=== PATIENT | female | born 1970 | race Asian ===

== ENCOUNTER 2017-02-23 08:00 | Outpatient (CLI) | payer BC, OTHER ==
[2017-02-23 19:07] LABS: BASOPHILS # (AUTO) 0.1 10^3/uL (0.0-0.1); EOSINOPHILS # (AUTO) 0.1 10^3/uL (0.0-0.7); EOSINOPHILS % (AUTO) 1.3 %; HCT - HEMATOCRIT 40.2 % (37.0-47.0); HGB - HEMOGLOBIN 13.6 g/dL (12.0-16.0); LYMPHOCYTES # (AUTO) 2.6 10^3/uL (1.5-3.5); MEAN CORPUSCULAR HEMOGLOBIN 31.2 pg (27.0-31.0); MEAN CORPUSCULAR HGB CONC 33.7 g/dL (32.0-36.0); MEAN CORPUSCULAR VOLUME 92.4 fL (81.0-99.0); MEAN PLATELET VOLUME 8.6 fL (7.9-10.8); MONOCYTES # (AUTO) 0.2 10^3/uL (0.0-1.0); MONOCYTES % (AUTO) 4.3 %; NEUTROPHILS # (AUTO) 2.6 10^3/uL (1.5-6.6); NEUTROPHILS % (AUTO) 46.4 %; NUCLEATED RED BLOOD CELLS AUTO 0.1 /100WBC; RED BLOOD COUNT 4.35 10^6/uL (4.20-5.40); RED CELL DISTRIBUTION WIDTH 13.4 % (12.0-15.0); UNCORRECTED WHITE BLOOD COUNT 5.6 x10^3/uL; WHITE BLOOD COUNT 5.6 x10^3/uL (4.8-10.8)
[2017-02-23 19:37] LABS: HEMOGLOBIN A1C 0.53 g/dL
[2017-02-23 19:42] LABS: THYROID STIMULATING HORMONE 1.64 uIU/mL (0.34-5.60)
[2017-02-23 20:08] LABS: FOLLICLE STIMULATING HORMONE 8.33 mIU/mL
== END 2017-02-23 08:01 | disposition home or self-care (01) ==
LOC: LAB.N 08:00
PROVIDERS: ATTEND Registered Nurse
DX: N92.1 Excessive and frequent menstruation with irregular cycle (principal)
CPT/HCPCS: 36415; 82670; 83001; 83036; 84436; 84439; 84443; 85025

== ENCOUNTER 2017-12-02 08:00 | Outpatient (CLI) | payer BC, OTHER ==
[2017-12-02 13:02] LABS: BASOPHILS # (AUTO) 0.1 10^3/uL (0.0-0.1); BASOPHILS % (AUTO) 1.2 %; EOSINOPHILS # (AUTO) 0.1 10^3/uL (0.0-0.7); EOSINOPHILS % (AUTO) 1.3 %; LYMPHOCYTES # (AUTO) 1.9 10^3/uL (1.5-3.5); LYMPHOCYTES % (AUTO) 34.5 %; MEAN CORPUSCULAR HEMOGLOBIN 30.8 pg (27.0-31.0); MEAN CORPUSCULAR HGB CONC 33.3 g/dL (32.0-36.0); MEAN CORPUSCULAR VOLUME 92.7 fL (81.0-99.0); MEAN PLATELET VOLUME 8.5 fL (7.9-10.8); MONOCYTES # (AUTO) 0.3 10^3/uL (0.0-1.0); MONOCYTES % (AUTO) 6.1 %; NEUTROPHILS # (AUTO) 3.1 10^3/uL (1.5-6.6); NEUTROPHILS % (AUTO) 56.9 %; PLT - PLATELET COUNT 238 10^3/uL (130-450); RED BLOOD COUNT 3.91 10^6/uL (4.20-5.40); RED CELL DISTRIBUTION WIDTH 14.3 % (12.0-15.0); WHITE BLOOD COUNT 5.5 x10^3/uL (4.8-10.8)
[2017-12-02 13:04] LABS: THYROID STIMULATING HORMONE 1.95 uIU/mL (0.34-5.60)
[2017-12-02 13:31] LABS: FOLLICLE STIMULATING HORMONE 3.93 mIU/mL
[2017-12-02 13:32] LABS: LUTEINIZING HORMONE 3.05 mIU/mL
== END 2017-12-02 08:01 | disposition home or self-care (01) ==
LOC: LAB.N 08:00
PROVIDERS: ATTEND Registered Nurse
DX: N92.1 Excessive and frequent menstruation with irregular cycle (principal)
CPT/HCPCS: 36415; 82670; 83001; 83002; 84443; 85025

== ENCOUNTER 2018-02-01 10:34 | Outpatient (CLI) | payer BC, OTHER ==
--- NOTE | 2018-02-01 13:35 | Ultrasound Report ---
Reason: EXCESSIVE AND FREQUENT MENSTRUATION WITH IRREGULAR Procedure Date: 02/01/2018 Accession Number: [id number] / [id number] Procedure: US - Pelvic w/Transvaginal CPT Code: FULL RESULT: EXAM: PELVIC ULTRASOUND EXAM DATE: 02/01/2018 11:34 AM. CLINICAL HISTORY: Excessive and frequent menstruation with irregular cycles. COMPARISON: None. TECHNIQUE: Realtime transabdominal pelvic scan performed to identify the uterus and adnexa and as an overview of other pelvic structures, followed by transvaginal scan to provide greater detail of the uterus and adnexa, with static image documentation. FINDINGS: Uterus: 11.0 x 5.6 x 6.1 cm, volume 196 cc. Anteverted position. Normal overall size and echotexture. Masses: There is a submucosal fibroid which measures 2.0 x 3.1 x 3.5 cm. Endometrium: 5 mm. Normal. Cervix: Unremarkable. Right Ovary: 2.2 x 1.5 x 1.6 cm, volume 2.7 cc. Normal echotexture and blood flow. Left Ovary: 2.3 x 1.1 x 1.5 cm, volume 1.9 cc. Normal echotexture and blood flow. Free Fluid: None. Other: None. IMPRESSION: Submucosal fibroid. RADIA
== END 2018-02-01 10:35 | disposition home or self-care (01) ==
LOC: DI 10:34
PROVIDERS: ATTEND Registered Nurse
DX: D25.0 Submucous leiomyoma of uterus (principal)
CPT/HCPCS: 76830; 76856

== ENCOUNTER 2018-12-20 09:02 | Outpatient (CLI) | payer BC, OTHER ==
[2018-12-20 12:08] LABS: BASOPHILS # (AUTO) 0.1 10^3/uL (0.0-0.1); BASOPHILS % (AUTO) 1.2 %; EOSINOPHILS # (AUTO) 0.1 10^3/uL (0.0-0.7); EOSINOPHILS % (AUTO) 1.2 %; HGB - HEMOGLOBIN 12.9 g/dL (12.0-16.0); LYMPHOCYTES % (AUTO) 40.3 %; MEAN CORPUSCULAR HEMOGLOBIN 31.1 pg (27.0-31.0); MEAN CORPUSCULAR HGB CONC 31.9 g/dL (32.0-36.0); MEAN CORPUSCULAR VOLUME 97.6 fL (81.0-99.0); MEAN PLATELET VOLUME 10.7 fL (7.9-10.8); MONOCYTES # (AUTO) 0.3 10^3/uL (0.0-1.0); MONOCYTES % (AUTO) 6.4 %; NEUTROPHILS # (AUTO) 2.5 10^3/uL (1.5-6.6); NEUTROPHILS % (AUTO) 50.7 %; PLT - PLATELET COUNT 262 10^3/uL (130-450); RED BLOOD COUNT 4.15 10^6/uL (4.20-5.40); RED CELL DISTRIBUTION WIDTH 12.3 % (12.0-15.0); WHITE BLOOD COUNT 4.8 x10^3/uL (4.8-10.8)
[2018-12-20 12:24] LABS: ALBUMIN 4.5 g/dL (3.2-5.5); ALBUMIN/GLOBULIN RATIO 1.3 (1.0-2.2); ALKALINE PHOSPHATASE 43 IU/L (42-121); ALT ALANINE AMINOTRANSFERASE 20 IU/L (10-60); AST ASPARTATE AMINOTRANSFERASE 22 IU/L (10-42); BILIRUBIN,TOTAL 0.9 mg/dL (0.2-1.0); BUN - BLOOD UREA NITROGEN 15 mg/dL (6-20); CALCIUM 9.4 mg/dL (8.5-10.3); CARBON DIOXIDE - CO2 23 mmol/L (21-32); CHLORIDE 105 mmol/L (101-111); CHOL/HDL RATIO 2.7 (<4.4); CHOLESTEROL 175 mg/dL; CREATININE 0.7 mg/dL (0.4-1.0); GFR - MDRD 89 (>89); GLUCOSE 92 mg/dL (70-100); HDL CHOLESTEROL 66 mg/dL; LDL CHOLESTEROL,CALCULATED 100 mg/dL; LDL/HDL RATIO 1.5 (<4.4); SODIUM 140 mmol/L (135-145); TOTAL PROTEIN 7.9 g/dL (6.7-8.2); VLDL CHOLESTEROL 9 mg/dL
== END 2018-12-20 09:03 | disposition home or self-care (01) ==
LOC: LAB.WCP 09:02
PROVIDERS: ATTEND Family Medicine
DX: K21.9 Gastro-esophageal reflux disease without esophagitis (principal); L81.9 Disorder of pigmentation, unspecified; L70.0 Acne vulgaris; N92.0 Excessive and frequent menstruation with regular cycle; R20.2 Paresthesia of skin
CPT/HCPCS: 36415; 80053; 80061; 83721; 84443; 85025

== ENCOUNTER 2019-01-27 13:14 | Outpatient (CLI) | payer BC, OTHER | END 2019-01-27 13:15 | disposition home or self-care (01) | LOC: DI 13:14 | PROVIDERS: ATTEND Family Medicine | DX: Z53.9 Procedure and treatment not carried out, unspecified reason (principal) ==

== ENCOUNTER 2019-01-30 08:15 | Outpatient (CLI) | payer BC, OTHER ==
--- NOTE | 2019-01-30 16:19 | XRAY Report ---
Reason: NECK AND BACK PAIN Procedure Date: 01/30/2019 Accession Number: [id number] / [id number] Procedure: WCP - Cervical Spine 2 View CPT Code: FULL RESULT: EXAM: CERVICAL SPINE RADIOGRAPHY EXAM DATE: 01/30/2019 08:32 AM. CLINICAL HISTORY: NECK AND BACK PAIN. COMPARISONS: None. TECHNIQUE: 3 views. FINDINGS: Alignment: Normal. No spondylolisthesis or scoliosis. Bones: The cervical vertebral bodies and posterior elements are well visualized from the skull base through C7-T1. No fractures or bone lesions. Disks: Mild disk space height narrowing at C5-C6. Disk heights elsewhere are maintained . Facets: No degenerative disease. Soft Tissues: Normal. No prevertebral soft tissue swelling. The visualized lung apices are clear. IMPRESSION: Mild focal degenerative changes at C5-C6. RADIA
--- NOTE | 2019-01-30 16:19 | XRAY Report ---
Reason: LEFT SHOULDER PAIN Procedure Date: 01/30/2019 Accession Number: [id number] / [id number] Procedure: WCP - Shoulder 3 View LT CPT Code: FULL RESULT: EXAM: LEFT SHOULDER RADIOGRAPHY EXAM DATE: 01/30/2019 08:32 AM. CLINICAL HISTORY: LEFT SHOULDER PAIN. COMPARISON: None. TECHNIQUE: 3 views. FINDINGS: Bones: Normal. No fracture or bone lesion. Joints: The glenohumeral and acromioclavicular joints are normal. Soft tissues: The visualized hemithorax is unremarkable. No soft tissue swelling. IMPRESSION: Normal shoulder radiography. RADIA
== END 2019-01-30 23:59 | disposition home or self-care (01) ==
LOC: DI.WCP 08:15 → EDSTATUS 13:19 → DI.WCP 23:59
PROVIDERS: ATTEND Family Medicine
DX: M50.322 Other cervical disc degeneration at C5-C6 level (principal); M25.512 Pain in left shoulder
CPT/HCPCS: 72040

== ENCOUNTER 2019-04-06 08:00 | Outpatient (CLI) | payer BC, OTHER | END 2019-04-06 23:59 | disposition home or self-care (01) | LOC: LAB.R 08:00 | PROVIDERS: ATTEND Obstetrics & Gynecology | DX: R35.0 Frequency of micturition (principal) | CPT/HCPCS: 87086 ==

== ENCOUNTER 2020-05-20 08:00 | Outpatient (CLI) | payer BC, OTHER ==
[2020-05-20 16:25] LABS: BILIRUBIN,URINE NEGATIVE (NEGATIVE); GLUCOSE, URINE (UA) NEGATIVE (NEGATIVE); KETONES,URINE (UA) NEGATIVE (NEGATIVE); LEUKOCYTE ESTERASE, URINE NEGATIVE (NEGATIVE); NITRITE,URINE NEGATIVE (NEGATIVE); OCCULT BLOOD,URINE NEGATIVE (NEGATIVE); PH,URINE 6.5 PH (5.0-7.5); PROTEIN,URINE NEGATIVE (NEGATIVE); UROBILINOGEN,URINE 0.2 (NORMAL) E.U./dL (NORMAL)
[2020-05-20 16:31] LABS: CLARITY,URINE CLEAR (CLEAR)
[2020-05-20 16:32] LABS: BACTERIA,URINE Many /HPF (None Seen); RBC,URINE None Seen /HPF (0-5); SQUAMOUS EPITHELIAL CELL,UR MANY Squamous (<= Few)
== END 2020-05-20 23:59 | disposition home or self-care (01) ==
LOC: LAB.R 08:00
PROVIDERS: ATTEND Obstetrics & Gynecology
DX: R35.0 Frequency of micturition (principal); N39.3 Stress incontinence (female) (male)
CPT/HCPCS: 81001; 87086

== ENCOUNTER 2021-05-02 14:32 | Emergency (ER) | payer BC, OTHER ==
--- NOTE | 2021-05-02 15:14 | ED Physician Documentation ---
History of Present Illness - Stated complaint Stated Complaint: GLF KNEE/WRIST PX - Chief complaint Chief Complaint: Trauma Ext - Additonal information Additional information: 50-year-old female presents emergency department with acute right knee pain as well as acute right wrist pain. She slipped on one of her dogs toys falling backwards. She braced herself with her right hand and now has pain on the dorsum of the wrist radial side. She also reports that her knee bent awkwardly increasing pain. At baseline she has chronic right knee pain. 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 Her hematoma on the right side has increased since the fall today. Review of Systems Constitutional: denies: Fever, Chills Eyes: reports: Reviewed and negative Nose: reports: Reviewed and negative Cardiac: reports: Reviewed and negative Respiratory: reports: Reviewed and negative GI: reports: Reviewed and negative : reports: Reviewed and negative Skin: reports: Other (angiomata hematoma) Musculoskeletal: reports: Extremity pain (right wrist, right knee) Neurologic: denies: Syncope, Seizure, Headache, Head injury, LOC PD PAST MEDICAL HISTORY - Past Medical History GI: GERD - Past Surgical History Ortho: Arthroscopic surgery, Other - Present Medications Home Medications: Ambulatory Orders Medication Instructions Recorded Confirmed Esomeprazole Magnesium [Nexium] 20 mg PO BID 02/02/14 11/10/14 Ibuprofen [Motrin] 400 mg PO Q6H PRN #30 tablet 11/10/14 Oxycodone HCl/Acetaminophen 1 - 2 each PO Q6H PRN #15 tablet 11/10/14 [Percocet 5-325 mg Tablet] HYDROcod/ACETAM 5/325 [[place] 5/325] 1 tablet PO BID PRN #15 tablet 05/02/21 - Allergies Allergies/Adverse Reactions: Allergies Allergy/AdvReac Type Severity Reaction Status Date / Time No Known Drug Allergies Allergy Verified 05/02/21 14:45 - Social History Does the pt smoke?: No Smoking Status: Never smoker Does the pt drink ETOH?: No Does the pt have substance abuse?: No - Immunizations Immunizations are current?: Yes PD ED PE EXPANDED - General General: Alert, No acute distress, Well developed/nourished - Cardiac Cardiac: Regular Rate, Radial strong equal, Pedal strong equal, Cap refill < 2 sec - Respiratory Respiratory: Clear to ausultation dionna. No: Distress, Labored - Abdomen Abdomen: Normal Bowel sounds. No: Tender to palpation - Extremities Extremities: Right wrist (mild swellign tenderness dorsum of wrist, radial side with normal flexion/extension and grasp. 2+ radial pulse. no deformity. no snuff box tenderness), Right knee (chronic hematoma right lateral knee and swellign noted. Increased tenderness medially at the proximal lateral tibia. Limited flexion/extension secondary to pain. 2+ pedal pulse) Results - Vitals Vitals: Vital Signs - 24 hr 05/02/21 14:41 Temperature 37.2 C Heart Rate 88 Respiratory 16 Rate Blood Pressure 129/73 O2 Saturation 99 Oxygen O2 Source Room air - Rads (name of study) right wrist Radiology: Final report received (No displaced fractures are seen) right knee Radiology: Final report received (Potential tibial plateau fracture seen on [address] correlation) CT right knee Radiology: Final report received (Fracture of the medial tibial spine. No additional tibial plateau fracture can be seen. Small joint effusion.) PD MEDICAL DECISION MAKING - ED course Complexity details: reviewed results, re-evaluated patient, considered differential, d/w patient ED course: 50-year-old female presents the emergency department for evaluation of acute right knee pain after falling at home. She does have a history of a chronic hematoma since in this knee. The initial x-ray suggested a tibial plateau fracture and she was quite tender in this area. However a CT of the knee does confirm a medial tibial spine fracture. Patient was placed in a knee immobilizer and given crutches. She is advised close follow-up with orthopedics. Limited prescription for [place] was sent to the pharmacy. Emergent return precautions discussed. Departure - Departure Disposition: Home, Self Care Clinical Impression: Right medial tibial plateau fracture Qualifiers: Encounter type: initial encounter Fracture type: closed Qualified Code(s): S82.131A - Displaced fracture of medial condyle of right tibia, initial encounter for closed fracture Condition: Stable Record reviewed to determine appropriate education?: Yes Instructions: ED Fx Lower Ext Follow-Up: Calin Guy MD [Provider Admit Priv/Credential] - Prescriptions: HYDROcod/ACETAM 5/325 [[place] 5/325] 1 tablet PO BID PRN #15 tablet PRN Reason: Pain Comments: Unfortunately the CT of your right knee does confirm that you have a medial tibial spine fracture. This is a type of fracture that must be nonweightbearing. You are to keep your knee in the immobilizer at all times other than when taking a shower. It is important that you follow-up closely with orthopedics. Please call the office on Tuesday to arrange to be seen in the next 7 to 10 days. If at any point you develop fevers, have leg swelling, chest pain or shortness of air then please return immediately to the ER. In general Tylenol and ibuprofen can be taken for pain control. For severe pain I have ordered a limited prescription of [place]. This has been sent to the [facility] in [place]. I am prescribing a short course of narcotic pain medication for you. These are potentially dangerous and addictive medications that should be used carefully. These medications may constipate you. Take an rtpc-ypk-rktyksn stool softener (docusate) twice daily with plenty of water while taking these medications. If you go 24 hours without a bowel movement, take cppw-rtv-gurtopn miralax, per package instructions. Do not drink or drive while taking these medications. If you received narcotic or sedating medications while in the emergency department, do not drive for 24 hours. Store this medication in a safe, secure place and out of reach of children. It is a violation of federal law to give or sell this medication to another person or to use in a manner other than prescribed. The ED will not refill narcotic prescriptions, including prescriptions lost or stolen. To dispose of unwanted medications: 1. [facility] [address] in [place] has a medication drop box. They accept prescription medications (in pill form) Tuesday through Tuesday 9:00 a.m. to 5:00 p.m. 2. The [facility] [employer] accepts prescription medications (in pill form only) for disposal year round. Call for more information. 3. Contact the [facility] for the next [facility] sponsored prescription drug collection event. , [phone], or [phone]; Note that many narcotic pain relievers also contain Tylenol/acetaminophen. Please ensure that your total dose of acetaminophen from all sources does not exceed 3 g (3000 mg) per day.
--- NOTE | 2021-05-02 16:04 | XRAY Report ---
PROCEDURE: Wrist 4 View RT INDICATIONS: Trauma TECHNIQUE: 4 views of the wrist were acquired. COMPARISON: None FINDINGS: Bones: No fractures or dislocations. No suspicious bony lesions. Focal degenerative change is seen involving the first carpometacarpal joint, with milder degenerative changes seen elsewhere. Scaphoid view: No scaphoid fractures are seen. Soft tissues: No suspicious soft tissue calcifications. IMPRESSION: No displaced fractures are seen on these plain films. If there is snuffbox tenderness (or other clinical concern for a fracture not seen on these images) p lease consider a dedicated CT study or a short-term follow-up plain film series, following splinting. Reviewed by: Jaime Thomas MD on 05/02/2021 3:03 PM [facility] Approved by: Jaime Thomas MD on 05/02/2021 3:03 PM [facility] Station ID: [id number]
--- NOTE | 2021-05-02 16:08 | XRAY Report ---
PROCEDURE: Knee 4 View RT INDICATIONS: Trauma TECHNIQUE: 4 views of the right knee(s) were acquired. COMPARISON: 11/10/2014 FINDINGS: Bones: On one image, there is the appearance of a proximal tibial fracture, with intra-articular invo lvement. However, this is not substantiated on other images. Chronic appearing fragmentation of the t ibial spines can be seen. No suspicious bony lesions. On the lateral view, the patella is somewhat inferiorly located. Chronic fragmentation can be seen al soumya the patellar tendon inferiorly. There is mild medial femorotibial joint space narrowing, with ass ociated degenerative change with subchondral sclerosis and osteophyte formation. On the sunrise view, there is moderate to severe patellofemoral joint space narrowing, with associate d remodeling changes, including spurs along the margins of the patella. Soft tissues: There is a small joint effusion. No suspicious soft tissue calcifications. IMPRESSION: Potential tibial plateau fracture seen on one image only. Please correlate with focal te nderness. If it would be helpful for clinical management decision making, please consider a dedicated knee CT for further evaluation. Low-lying patella seen on the lateral view, which is a chronic finding compared to 2015. Degenerative changes are seen, which are worst involving the patellofemoral joint. Reviewed by: Jaime Thomas MD on 05/02/2021 3:07 PM [facility] Approved by: Jaime Thomas MD on 05/02/2021 3:07 PM [facility] Station ID: [id number]
[2021-05-02] MEDS ORDERED: HYDROcod/ACETAM 5/325 MG TABLET PO STA (16:36)
--- NOTE | 2021-05-02 17:29 | CT Report ---
PROCEDURE: LOWER EXTREMITY WO - RT INDICATIONS: ? right tibial plateau fx TECHNIQUE: Noncontrast 3 mm axial sections acquired of the right knee, with coronal and sagittal reformats. COMPARISON: Correlation is made with the accompanying knee plain films, 05/02/2021. FINDINGS: Image quality: Excellent. Bones: There are mild, comminuted fractures of the medial tibial spine seen, as on series 7 image 50 . No additional tibial plateau fracture is seen. The line seen on one image on the recent prior plain f ilms is considered to be artifactual. Generalized degenerative changes and osteopenia can be seen. There is at least mild medial femorotibi al joint space narrowing present. Moderate to severe patellofemoral joint space narrowing can be seen . There is moderate osteophyte formation seen along the margins of the patella laterally. Soft tissues: A small joint effusion is seen. Soft tissue swelling can be seen laterally. IMPRESSION: Fractures of the medial tibial spine can be seen. No additional tibial plateau fracture can be seen. Small joint effusion. Soft tissue swelling is seen laterally. Underlying degenerative changes and osteopenia can be seen, including moderate to severe patellofemor al joint space narrowing. Reviewed by: Jaime Thomas MD on 05/02/2021 4:28 PM [facility] Approved by: Jaime Thomas MD on 05/02/2021 4:28 PM [facility] Station ID: [id number]
[2021-05-02 18:09] VITALS: BP 127/87
== END 2021-05-02 18:09 | disposition home or self-care (01) ==
LOC: ED 14:32
DX: S82.111A Displaced fracture of right tibial spine, initial encounter for closed fracture (principal); M25.531 Pain in right wrist; W01.0XXA Fall on same level from slipping, tripping and stumbling without subsequent striking against object, initial encounter; Y92.009 Unspecified place in unspecified non-institutional (private) residence as the place of occurrence of the external cause; Q82.8 Other specified congenital malformations of skin
CPT/HCPCS: 73110; 73564; 73700; 99284; A9270

== ENCOUNTER 2021-05-07 09:10 | Outpatient (CLI) | payer BC, OTHER ==
--- NOTE | 2021-05-07 11:37 | XRAY Report ---
PROCEDURE: Elbow 3 View RT INDICATIONS: R ELBOW PX TECHNIQUE: 3 views of the elbow were acquired. COMPARISON: None. FINDINGS: Bones: No fractures or dislocations. No suspicious bony lesions. Soft tissues: No elbow joint effusion. No suspicious soft tissue calcifications. IMPRESSION: No acute findings. If the patient's pain or other symptoms persist, consider further evaluation with MRI. Reviewed by: Noah Griffiths MD on 05/07/2021 11:36 AM [facility] Approved by: Noah Griffiths MD on 05/07/2021 11:36 AM PST Station ID: [id number]
== END 2021-05-07 23:59 | disposition home or self-care (01) ==
LOC: DI.N 09:10
PROVIDERS: ATTEND Orthopaedic Surgery
DX: M25.521 Pain in right elbow (principal)

== ENCOUNTER 2021-05-14 08:30 | Outpatient (CLI) | payer BC, OTHER ==
--- NOTE | 2021-05-14 10:54 | XRAY Report ---
PROCEDURE: Wrist 4 View RT INDICATIONS: R WRIST PX TECHNIQUE: 4 views of the wrist were acquired. COMPARISON: 05/02/2021. FINDINGS: Bones: No fractures or dislocations. No suspicious bony lesions. Scaphoid view: Scaphoid is intact. Soft tissues: No suspicious soft tissue calcifications. IMPRESSION: No fracture. No osseous lesion. If there are persistent symptoms or continued clinical concern for pa thology, then advanced imaging (CT, MR) should be considered for further evaluation. Reviewed by: Katty Babcock MD, PhD on 05/14/2021 10:53 AM [facility] Approved by: Katty Babcock MD, PhD on 05/14/2021 10:53 AM [facility] Station ID: [id number]
== END 2021-05-14 23:59 | disposition home or self-care (01) ==
LOC: DI.N 08:30
PROVIDERS: ATTEND Orthopaedic Surgery
DX: M25.531 Pain in right wrist (principal); S82.114A Nondisplaced fracture of right tibial spine, initial encounter for closed fracture

== ENCOUNTER 2021-06-30 07:36 | Outpatient (CLI) | payer BC, OTHER ==
--- NOTE | 2021-06-30 11:04 | XRAY Report ---
PROCEDURE: Knee 4 View RT INDICATIONS: RIGHT KNEE PAIN TECHNIQUE: 4 views of the right knee(s) were acquired. COMPARISON: None. FINDINGS: Bones: Moderate tricompartmental osteoarthritis in right knee is seen more prominent in patellofemor al compartment. No acute fractures or dislocations. No patellar subluxation. No suspicious bony lesi ons. Soft tissues: No joint effusion. No suspicious soft tissue calcifications. IMPRESSION: Moderate tricompartmental osteoarthritis in right knee most prominent in patellofemoral compartment. No acute fracture or dislocation. No significant joint effusion. Reviewed by: Tushar Powell MD on 06/30/2021 11:03 AM PST Approved by: Tushar Powell MD on 06/30/2021 11:03 AM PST Station ID: [id number]
== END 2021-06-30 07:37 | disposition home or self-care (01) ==
LOC: DI.WOS 07:36
PROVIDERS: ATTEND Orthopaedic Surgery
DX: S82.114A Nondisplaced fracture of right tibial spine, initial encounter for closed fracture (principal); M17.11 Unilateral primary osteoarthritis, right knee

== ENCOUNTER 2021-10-08 15:34 | Outpatient (CLI) | payer BC, OTHER ==
[2021-10-08 16:37] LABS: BILIRUBIN,URINE NEGATIVE (NEGATIVE); GLUCOSE, URINE (UA) NEGATIVE (NEGATIVE); KETONES,URINE (UA) NEGATIVE (NEGATIVE); LEUKOCYTE ESTERASE, URINE NEGATIVE (NEGATIVE); NITRITE,URINE NEGATIVE (NEGATIVE); OCCULT BLOOD,URINE LARGE (NEGATIVE); PROTEIN,URINE NEGATIVE (NEGATIVE); UROBILINOGEN,URINE 0.2 (NORMAL) E.U./dL (NORMAL)
[2021-10-08 16:56] LABS: BACTERIA,URINE None Seen /HPF (None Seen); CLARITY,URINE CLEAR (CLEAR); SQUAMOUS EPITHELIAL CELL,UR RARE Squamous (<= Few); WBC,URINE 0-3 /HPF (0-5)
== END 2021-10-08 23:59 | disposition home or self-care (01) ==
LOC: LAB.WC 15:34
PROVIDERS: ATTEND Obstetrics & Gynecology
DX: R30.0 Dysuria (principal)
CPT/HCPCS: 81001; 87086